=== PATIENT | female | born 1985 | race Caucasian/White ===

== ENCOUNTER 2023-11-26 07:26 | Emergency (ER) | payer OTHER, SELFPAY ==
[2023-11-26 07:29] VITALS: BP 115/82
--- NOTE | 2023-11-26 10:14 | ED.GENMED ---
History of Present Illness
General
Chief Complaint: Cough
Source: patient
Exam Limitations: none
Time Seen by Provider: 11/26/23 07:47
Nursing documentation reviewed up to this point in time: agreed with
Travel History
Have you had any contact with someone who has COVID-19?: No
Do you have any symptoms of coronavirus? Fever > 100 degrees, chills, cough, shortness of breath, sore throat, loss of taste or smell, muscle aches, or headache?: Yes
Symptoms:: cough
History of Present Illness
History of Present Illness:
The patient is a pleasant 37-year-old female who reports she had asthma as a child, and presents with persistent severe cough for 2 weeks. Patient reports that she has been in urgent care multiple times and was started on azithromycin and a
prednisone Dosepak. She reports the cough lingered so she went back to urgent care and was just started on Augmentin and a 50 mg dose of prednisone for 5 days. Patient reports that she took 2 doses of Augmentin and 1 dose of prednisone and she is
still coughing. Patient reports that in addition, she has also been taking allergy medication. Patient reports she has this constant tickle in her throat that keeps causing her to cough. She also reports mild postnasal drip. She denies chest
pain, leg pain, leg swelling, and fever. She denies a history of PE and DVT. Patient reports that she was given promethazine to sleep at night but is unable to sleep due to severe cough. Patient reports that she had a chest x-ray done yesterday
at urgent care that showed no pneumonia but showed signs of 'bronchial thickening.' Patient reports that after taking 2 doses of Augmentin, she is now having diarrhea without abdominal pain.
Past History
Past History
ED Past Medical History: Asthma and Psychiatric
ED Past Surgical History: None
Social History
Tobacco: Non-smoker
Alcohol: Daily
Drug: None
Personal:
Living: with family
Family History
Family History: Other
Review of Systems
Review of Systems
Allergies reviewed?: Yes
All Other Systems: ROS reviewed and negative except as documented in HPI and ROS
Constitutional: Reports no symptoms
EENT: Reports other (Itchy throat, postnasal drip)
Respiratory: Reports cough
Cardiac: Reports no symptoms
ABD/GI: Reports no symptoms
: Reports no symptoms
Musculoskeletal: Reports no symptoms
Neurological: Reports no symptoms
Endocrine: Reports no symptoms
Hematologic/Lymphatic: Reports no symptoms
Psychiatric: Reports no symptoms
Phy Exam
Physical Exam
Physical Exam:
Physical Exam
General: no apparent distress, not acutely ill, very well, nontoxic
Neck: supple. no meningeal signs. normal psoterior pharynx. Frequent dry cough
Heart: s1/s2 regular rate and rhythm, no murmur. equal radial pulses.
Lungs: no acute respiratory distress. clear bilaterally, no crackles or wheezing. No tachypnea
Abdomen: normal bowel sounds. not tender. no CVAT
Neuro: alert and oriented. no focal neurological deficits
Skin: no rash
Psychiatric: well kept. interactive and cooperative
Extremities: no edema. no calf tenderness. negative homans. good distal pulses
Course
Vital Signs
Initial and Last Documented VS:
Initial Vital Signs
Temp Pulse Resp BP Pulse Ox
98.6 F 93 18 115/82 99
11/26/23 07:29 11/26/23 07:29 11/26/23 07:29 11/26/23 07:29 11/26/23 07:29
Last Documented Vital Signs
Temp Pulse Resp BP Pulse Ox
98.6 F 86 18 100/66 99
11/26/23 07:29 11/26/23 08:10 11/26/23 08:10 11/26/23 10:19 11/26/23 10:30
MDM/Problems Addressed
Differential Diagnosis Includes:
Seasonal allergies, viral pneumonia, upper respiratory infection
MDM/Problems Addressed:
Patient presents with 2 weeks of persistent subacute cough
Chronic conditions affecting care: Asthma
Acute Exacerbation and/or Progression of Chronic Illness:
Patient may have exacerbation of asthma
*Pulse Oximetry
Patient hypoxic: no
*EKG
Interpreted by ED Provider?: NA
*Auto Self Service Station Attendant Interpretation
Rate: Auto Self Service Station Attendant- N/A
*Critical Care Note
Total Time (30-74mins, 75-104mins- exclusive of procedures): Not Applicable
Data Reviewed
Source: patient
Patient Management
Social determinants of health affecting care: Living situation and Strong social support
Escalation/DeEscalation of care consider admission/obs:
Patient appears nontoxic and well. She has had no fever, chest pain or shortness of breath. Her pulse ox is normal. I suspect that her symptoms are likely due to seasonal allergies. Patient already finished a course of azithromycin and given she
now has diarrhea from the Augmentin, I suggest that she stop the Augmentin. Patient encouraged to continue taking the prednisone, allergy medication, and recommended to add Cepacol lozenge or's. Patient prescribed codeine cough syrup only to take
at night as needed for severe cough.
ED Attending Note
-
Portions of this chart may have been created with voice recognition software.� Occasional wrong word or��sound alike� substitutions may have occurred due to the inherent limitations of voice recognition software.
Discharge Plan
Departure
Patient Disposition: Home (Routine Discharge)
Date of Disposition: 11/26/23
Time of Disposition: 10:20
Patient with high blood pressure during this ER visit?: No
Condition: Good
Covid-19: Not Applicable
Discharge Problem:
Cough
Instructions: Cough, Adult (DC)
Prescriptions:
New
codeine-guaifenesin 10-100 mg/5 mL liquid
5 ml PO ONCE PRN (Reason: Cough) Qty: 60 0RF
Rx Instructions:
Take at night as needed for cough
No Action
PNV #[id number]
1 tab PO DAILY
acetaminophen 325 mg Tablet
650 mg PO Q4HPRN PRN (Reason: mild pain) Qty: 0 0RF
lorazepam 1 mg Tablet
1 mg PO Q4HPRN PRN (Reason: tremors) Qty: 0 0RF
ibuprofen 600 mg Tablet
600 mg PO Q4HPRN PRN (Reason: cramps) Qty: 0 0RF
ondansetron 4 mg Tablet,Disintegrating
4 mg PO TIDPRN PRN (Reason: nausea/vomiting) Qty: 8 0RF
Referrals:
Smith Arauz MD [Active] - (Call if not feeling better in 2-3 days)
UNKNOWN - PT DOES,NOT KNOW [Family Provider] -
Activity Restrictions/Additional Instructions:
Continue the prednisone as prescribed, as well as the albuterol and allergy medication. Please stop the Augmentin. If the cough lingers, please follow-up with pulmonary. Please buy Cepacol [id number] to help with the itchiness in your
throat.
Interventions
Interventions:
*Risk Screen - Suicide Last Done: 11/26/23 07:29
*General Assessment Last Done: 11/26/23 07:29
*Neglect/Abuse Screening Last Done: 11/26/23 07:29
ED- Fall Risk Assessment Last Done: 11/26/23 10:03
*ED COVID-19 Vaccine History Last Done: 11/26/23 10:03
*Nursing Disposition Last Done: 11/26/23 10:03
ED- Pulmonary Assessment Last Done: 11/26/23 08:10
Discharge Date and Time
Discharge Date/Time: 11/26/23 10:30
Print Language: [place] LEONE[place]
[2023-11-26 10:19] VITALS: BP 100/66
== END 2023-11-26 10:30 | disposition home or self-care (01) ==
LOC: EMR 07:26
PROVIDERS: EMERGENCY PHYSICIAN Emergency Medicine
DX: R05.9 Cough, unspecified (principal); J45.909 Unspecified asthma, uncomplicated; R19.7 Diarrhea, unspecified
CPT/HCPCS: 99283

== ENCOUNTER 2023-12-20 06:09 | Emergency (ER) | payer OTHER, SELFPAY ==
[2023-12-20 06:11] VITALS: BP 99/74
[2023-12-20 06:37] LABS: % Basophils 0.3 % (0-2); % Immature Granulocytes 0.3 % (0-0.5); % Lymphocytes 27.1 % (20.5-51.1); % Monocytes 3.7 % (1.7-9.3); % Neutrophils 64.6 % (42.2-75.2); Absolute Eosinophils 0.2 10^3/uL (0-0.7); Absolute Lymphocytes 1.6 10^3/uL (1.2-3.4); Absolute Monocytes 0.2 10^3/uL (0.1-0.6); Absolute Neutrophils 3.9 10^3/uL (1.4-6.5); Hematocrit 35.4 % (37.0-47.0); Hemoglobin 12.2 g/dL (12.0-16.0); Mean Corp Hgb Conc. 34.5 g/dL (33.0-37.0); Mean Corpuscular Hgb 31.8 pg (27.0-31.0); Mean Corpuscular Volume 92.2 fL (81.0-99.0); Mean Platelet Volume 9.5 fL (7.4-10.4); Nucleated Red Blood Cells % 0 %; Platelet Count 207 10^3/uL (130-400); Red Blood Cell Count 3.84 10^6/uL (4.20-5.40); Red Cell Dist. Width 12.6 % (11.5-14.5)
[2023-12-20 06:52] LABS: HCG, Serum Qualitative Screen Negative
[2023-12-20 07:05] LABS: ALT (SGPT) 16 U/L (0-35); AST (SGOT) 26 U/L (14-36); Albumin 4.3 g/dl (3.5-5.0); Alcohol 41 mg/dl; Alkaline Phosphatase 56 U/L (38-126); Blood Urea Nitrogen 10 mg/dl (7-17); Calcium 8.9 mg/dl (8.4-10.2); Carbon Dioxide 26 mmol/L (22-30); Chloride 103 mmol/L (98-107); Glucose 82 mg/dl (70-99); Potassium 4.3 mmol/L (3.5-5.1); Sodium 138 mmol/L (135-145); Total Bilirubin 0.6 mg/dl (0.2-1.3); Total Protein 6.7 g/dl (6.3-8.2); eGFR > 60.00
--- NOTE | 2023-12-20 10:37 | ED.GENMED ---
History of Present Illness
General
Chief Complaint: Alcohol Problem
Source: patient
Exam Limitations: none
Time Seen by Provider: 12/20/23 10:16
Nursing documentation reviewed up to this point in time: agreed with
Travel History
Have you had any contact with someone who has COVID-19?: No
Do you have any symptoms of coronavirus? Fever > 100 degrees, chills, cough, shortness of breath, sore throat, loss of taste or smell, muscle aches, or headache?: No
History of Present Illness
History of Present Illness:
Patient is a 37-year-old female who presents to the ER for evaluation. Patient reports she has a history of alcohol abuse and was sober for 3 years then relapsed on Tuesday, 3 days ago. She drank Tuesday and Tuesday and tapered yesterday. Her
last check was 5 PM yesterday. She reports however she is very anxious feels her heart racing and cannot sleep. She is currently on no medications. She does attend meetings for AA and has support at home. She denies any suicidal homicidal
thoughts. Her mom drove her to the hospital.
Past History
Past History
ED Past Medical History: Asthma and Psychiatric
ED Past Surgical History: None
Social History
Tobacco: Non-smoker
Alcohol: Daily
Drug: None
Personal:
Living: with family
Family History
Family History: Other
Review of Systems
Review of Systems
Allergies reviewed?: Yes
All Other Systems: ROS reviewed and negative except as documented in HPI and ROS
Constitutional: Reports no symptoms; Denies fever, fatigue or chills
EENT: Reports no symptoms
Respiratory: Reports no symptoms
Cardiac: Reports no symptoms
ABD/GI: Reports no symptoms; Denies abdominal pain, nausea or vomiting
Musculoskeletal: Reports no symptoms
Skin: Reports no symptoms
Psychiatric: Reports anxiety; Denies depression, suicidal or hallucinations
Phy Exam
General Physical Exam
General Presentation: no apparent distress
General age: appears stated age
General Skin: warm and dry
General Habitus: normal
General Mental: alert
Cardiovascular Exam
Cardiovascular Exam: regular rate/rhythm, no murmur and normal peripheral pulses
Pulmonary Exam
Pulmonary Exam: lungs clear and no respiratory distress
Musculoskeletal Exam
Musculoskeletal Exam: full ROM
Skin Exam
Skin Exam: normal color and warm/dry
Psychiatric Exam
Psychiatric Exam: normal mood/affect
Scores
Withdrawal Assessment of Alcohol
Withdrawal Assessment Completed?: Yes
Nausea and Vomiting: No nausea and no vomiting
Tactile Disturbances: None
Tremor: No tremor
Auditory Disturbances: Not present
Paroxysmal Sweats: No sweat visible
Visual Disturbances: Not present
Anxiety: No anxiety, at ease
Headache, Fullness in Head: Not present
Agitation: Normal activity
Orientation and clouding of sensorium: Oriented and can do serial additions
Total CIWA Score: 0
Alcohol Withdrawal Medication Recommendation: Equal to MSAS Score 0-4. Monitor & re-assess q2hrs, NO MEDICATION NEEDED
Course
Orders/Labs/Results
Orders:
Orders
12/20/23 06:15
Test Result ONCE
12/20/23 06:24
Alcohol Urgent
Complete Blood Count/With Diff Urgent
Comprehensive Metabolic Panel Urgent
HCG, Serum Qualitative Screen Urgent
12/20/23 10:34
0.9% Sodium Chloride 1000 ml [Nss] 1,000 ml IV BOLUS
12/20/23 10:35
IV Insert/Care/Rem.- Treatment PRN
12/20/23 10:36
Lorazepam [Ativan] 0.5 mg IV NOW STA
12/20/23 10:37
Vital Signs- Treatment ONCE
Frequency: Once
12/20/23 10:39
Crisis Consult Urgent
Reason for Consult: resources for out pt treatment
Abnormal Lab Results
12/20/23
06:24
RBC 3.84 L 10^6/uL
(4.20-5.40)
Hct 35.4 L %
(37.0-47.0)
MCH 31.8 H pg
(27.0-31.0)
12/20/23 06:24
12/20/23 06:24
Vital Signs
Initial and Last Documented VS:
Initial Vital Signs
Temp Pulse Resp BP Pulse Ox
97.8 F 91 19 99/74 100
12/20/23 06:11 12/20/23 06:11 12/20/23 06:11 12/20/23 06:11 12/20/23 06:11
Last Documented Vital Signs
Temp Pulse Resp BP Pulse Ox
98.5 F 70 18 90/66 100
12/20/23 11:00 12/20/23 13:28 12/20/23 13:28 12/20/23 13:28 12/20/23 13:28
MDM/Problems Addressed
Differential Diagnosis Includes:
Not limited to anxiety, alcohol withdrawal alcohol abuse
MDM/Problems Addressed:
Patient is a 37-year-old female as documented with history of alcohol abuse was sober for 3 years then relapsed over the weekend. Patient had a last drink 5 PM last night but feels anxious and stressed.
She presents awake alert no acute distress she appears calm she is nontachycardic nontachypneic does not appear at all to being withdrawing. She does however request IV fluids and feels dehydrated. This is reasonable. She was given a small dose
of Ativan and fluids. Blood pressure on the lower side but patient reports blood pressure is normally 90s over 60s. discharge blood pressure 90/66. She does have alcohol resources at home such as AA but crisis did see her and gave her
recommendations for therapy. Will give a small dose of Ativan as needed for the next several days discussed close outpatient follow-up family doctor
Chronic conditions affecting care:
chronic alcohol abuse
*Critical Care Note
Total Time (30-74mins, 75-104mins- exclusive of procedures): Not Applicable
ED Attending Note
-
Portions of this chart may have been created with voice recognition software.� Occasional wrong word or��sound alike� substitutions may have occurred due to the inherent limitations of voice recognition software.
Discharge Plan
Departure
Patient Disposition: Home (Routine Discharge)
Date of Disposition: 12/20/23
Time of Disposition: 13:19
Patient with high blood pressure during this ER visit?: No
Condition: Fair
Covid-19: Not Applicable
Discharge Problem:
Alcohol abuse
Instructions: Alcohol Use Disorder (DC)
Prescriptions:
New
lorazepam [Ativan] 0.5 mg tablet
0.5 mg PO TID PRN (Reason: alcohol withdrawal) Qty: 10 0RF
Rx Instructions:
0.5 to 1 mg orally every 8 hrs as needed
No Action
PNV #[id number]
1 tab PO DAILY
acetaminophen 325 mg Tablet
650 mg PO Q4HPRN PRN (Reason: mild pain) Qty: 0 0RF
lorazepam 1 mg Tablet
1 mg PO Q4HPRN PRN (Reason: tremors) Qty: 0 0RF
ibuprofen 600 mg Tablet
600 mg PO Q4HPRN PRN (Reason: cramps) Qty: 0 0RF
ondansetron 4 mg Tablet,Disintegrating
4 mg PO TIDPRN PRN (Reason: nausea/vomiting) Qty: 8 0RF
codeine-guaifenesin 10-100 mg/5 mL liquid
5 ml PO ONCE PRN (Reason: Cough) Qty: 60 0RF
Rx Instructions:
Take at night as needed for cough
Referrals:
NONE,* [Family Provider] -
Activity Restrictions/Additional Instructions:
As discussed a prescription for Ativan was sent to pharmacy take as directed. No driving or drinking alcohol taking this medication. Follow-up with your resource that you were provided for therapy and alcohol abuse resources. Return if any
worsening of symptoms. Stay well-hydrated.
Interventions
Interventions:
*Risk Screen - Suicide Last Done: 12/20/23 06:11
*General Assessment Last Done: 12/20/23 06:11
*Neglect/Abuse Screening Last Done: 12/20/23 06:11
ED- Fall Risk Assessment Last Done: 12/20/23 11:00
*ED COVID-19 Vaccine History Last Done: 12/20/23 06:11
*Nursing Disposition Last Done: 12/20/23 13:37
ED- Neurological Assessment Last Done: 12/20/23 11:00
ED-Psychological Assessment Last Done: 12/20/23 11:00
Discharge Date and Time
Discharge Date/Time: 12/20/23 13:37
Print Language: GERMAN
[2023-12-20 11:00] VITALS: BP 83/54
[2023-12-20] MEDS: ATIVAN 0.5 MG IV (11:05)
[2023-12-20] MEDS: NSS 1000 IV (11:05)
[2023-12-20 13:28] VITALS: BP 90/66
== END 2023-12-20 13:37 | disposition home or self-care (01) ==
LOC: EMR 06:09
PROVIDERS: Emergency Medicine; EMERGENCY PHYSICIAN Emergency Medicine
DX: F10.10 Alcohol abuse, uncomplicated (principal)
CPT/HCPCS: 99284; 96374; 80053; 82077; 84703; 85025

== ENCOUNTER 2024-06-19 12:03 | Emergency (ER) | payer OTHER, SELFPAY ==
[2024-06-19] VITALS (7 sets, daily range): BP systolic 96–146; BP diastolic 67–107; BMI 21.9
--- NOTE | 2024-06-19 12:31 | ED.GENMED ---
ED Provider Triage
<Lianne Coates PA-C - Last Filed: 06/19/24 12:36>
-
Patient seen by provider in Triage?: Seen in Triage
Attestation: A medical screening examination has been initiated by a qualified medical provider. Based on the assessment performed at this time, it has been determined that an emergent medical condition may exist and the patient has been informed
that further medical evaluation and possible additional diagnostic testing may be needed.
HPI: [id number] here for detox evaluation. Recently started drinking alcohol again on . Drinking several beers/day. Last drink 8am this morning. C/o heart racing and anxiety.
GENERAL: Alert , in no apparent distress
EYE: No visual abnormalities.
NECK: Trachea midline
ENT: No visible abnormalities.
LUNGS: No acute respiratory distress
NEUROLOGICAL: Alert and oriented
SKIN: Skin intact. No visible changes.
MUSCULOSKELETAL: Moving extremities normally
PSYCH: Normal and appropriate interaction.
This is a medical evaluation conducted in person to initiate diagnostic evaluation and provide initial therapeutics. Please see further documentation by the treating clinician.
Cardiac labs, magnesium, HCG, and EKG ordered. [facility] contacted.
History of Present Illness
<Lianne Coates PA-C - Last Filed: 06/19/24 12:36>
General
Chief Complaint: Alcohol Problem
Time Seen by Provider: 06/19/24 13:50
<Yovany Dennison PA-C - Last Filed: 06/21/24 20:56>
General
Source: patient
Exam Limitations: none
History of Present Illness
History of Present Illness:
38-year-old otherwise healthy female presents with complaints of anxiety depression and requests help for her alcohol abuse. She has been sober for 4 years. She states she recently stopped breast-feeding her son and since then she has been
depressed and anxious. She tried to self medicate with alcohol. She has been drinking heavily over the past 4 days. Last drink was this morning. She still feels her heart is racing. She has been eating well. She does not feel well. She is
denying suicidal homicidal thoughts. She states she has had Seroquel in the past for her anxiety has not taken COVID. No other complaints at this time
Past History
<Lianne Coates PA-C - Last Filed: 06/19/24 12:36>
Past History
ED Past Medical History: Asthma and Psychiatric
ED Past Surgical History: None
Social History
Tobacco: Non-smoker
Alcohol: Daily
Drug: None
Personal:
Living: with family
Family History
Family History: Other
Phy Exam
<Yovany Dennison PA-C - Last Filed: 06/21/24 20:56>
Physical Exam
Physical Exam:
General: Well-appearing anxious female no acute respiratory distress HEENT: Normocephalic
Atraumatic mucosa dry
Heart: Regular rate and rhythm
Lungs: Clear
Neurologic exam alert oriented no obvious tremor
Psychiatric exam: Anxious but cooperative denying thoughts of harming self or others
Scores
<Yovany Dennison PA-C - Last Filed: 06/21/24 20:56>
Withdrawal Assessment of Alcohol
Withdrawal Assessment Completed?: Yes
Nausea and Vomiting: No nausea and no vomiting
Tactile Disturbances: None
Tremor: No tremor
Auditory Disturbances: Not present
Paroxysmal Sweats: No sweat visible
Visual Disturbances: Not present
Anxiety: Moderately anxious, or guarded, so anxiety is inferred
Headache, Fullness in Head: Not present
Agitation: Normal activity
Orientation and clouding of sensorium: Oriented and can do serial additions
Total CIWA Score: 4
Alcohol Withdrawal Medication Recommendation: Equal to MSAS Score 0-4. Monitor & re-assess q2hrs, NO MEDICATION NEEDED
<THANH Osborne - Last Filed: 06/19/24 20:48>
Withdrawal Assessment of Alcohol
Total CIWA Score: 4
Alcohol Withdrawal Medication Recommendation: Equal to MSAS Score 0-4. Monitor & re-assess q2hrs, NO MEDICATION NEEDED
Course
<Lianne Coates PA-C - Last Filed: 06/19/24 12:36>
Orders/Labs/Results
Orders:
Orders
06/19/24 12:34
Electrocardiogram (*1) Urgent
Reason for Study: Palpitations
EKG- Treatment ONCE
Test Result ONCE
06/19/24 12:43
Beta HCG Quantitative Urgent
Comment: ADD ON
Complete Blood Count/With Diff Urgent
Comprehensive Metabolic Panel Urgent
HCG, Serum Qualitative Screen Urgent
Magnesium Urgent
Troponin I Urgent
06/19/24 13:17
Lorazepam [Ativan] 2 mg PO NOW STA
06/19/24 13:24
Lorazepam [Ativan] 2 mg .ROUTE .STK-MED ONE
06/19/24 13:26
Lorazepam [Ativan] 2 mg PO NOW STA
06/19/24 13:36
Add On- LAB Urgent
Tests Added?: quantitative HCG
06/19/24 14:02
0.9% Sodium Chloride 1000 ml [Nss] 1,000 ml IV BOLUS
Lorazepam [Ativan] 1 mg IV NOW STA
06/19/24 15:46
Lorazepam [Ativan] 1 mg IV NOW STA
06/19/24 19:07
0.9% Sodium Chloride 1000 ml [Nss] 1,000 ml IV BOLUS
Abnormal Lab Results
06/19/24
12:43
MCH 32.0 H pg
(27.0-31.0)
Absolute Neuts (auto) 7.2 H 10^3/uL
(1.4-6.5)
Carbon Dioxide 20 L mmol/L
(22-30)
Glucose 100 H mg/dl
(70-99)
Magnesium 2.4 H mg/dl
(1.6-2.3)
Albumin 5.1 H g/dl
(3.5-5.0)
06/19/24 12:43
06/19/24 12:43
Vital Signs
Initial and Last Documented VS:
Initial Vital Signs
Temp Pulse Resp BP Pulse Ox
98.2 F 116 16 146/107 98
06/19/24 12:31 06/19/24 12:31 06/19/24 12:31 06/19/24 12:31 06/19/24 12:31
Last Documented Vital Signs
Temp Pulse Resp BP Pulse Ox
99.6 F 105 17 107/67 99
06/19/24 19:00 06/19/24 20:00 06/19/24 20:00 06/19/24 20:00 06/19/24 20:00
<Yovany Dennison PA-C - Last Filed: 06/21/24 20:56>
Orders/Labs/Results
Orders:
Orders
06/19/24 12:34
Electrocardiogram (*1) Urgent
Reason for Study: Palpitations
EKG- Treatment ONCE
Test Result ONCE
06/19/24 12:43
Beta HCG Quantitative Urgent
Comment: ADD ON
Complete Blood Count/With Diff Urgent
Comprehensive Metabolic Panel Urgent
HCG, Serum Qualitative Screen Urgent
Magnesium Urgent
Troponin I Urgent
06/19/24 13:17
Lorazepam [Ativan] 2 mg PO NOW STA
06/19/24 13:24
Lorazepam [Ativan] 2 mg .ROUTE .STK-MED ONE
06/19/24 13:26
Lorazepam [Ativan] 2 mg PO NOW STA
06/19/24 13:36
Add On- LAB Urgent
Tests Added?: quantitative HCG
06/19/24 14:02
0.9% Sodium Chloride 1000 ml [Nss] 1,000 ml IV BOLUS
Lorazepam [Ativan] 1 mg IV NOW STA
06/19/24 15:46
Lorazepam [Ativan] 1 mg IV NOW STA
06/19/24 19:07
0.9% Sodium Chloride 1000 ml [Nss] 1,000 ml IV BOLUS
Abnormal Lab Results
06/19/24
12:43
MCH 32.0 H pg
(27.0-31.0)
Absolute Neuts (auto) 7.2 H 10^3/uL
(1.4-6.5)
Carbon Dioxide 20 L mmol/L
(22-30)
Glucose 100 H mg/dl
(70-99)
Magnesium 2.4 H mg/dl
(1.6-2.3)
Albumin 5.1 H g/dl
(3.5-5.0)
06/19/24 12:43
06/19/24 12:43
Vital Signs
Initial and Last Documented VS:
Initial Vital Signs
Temp Pulse Resp BP Pulse Ox
98.2 F 116 16 146/107 98
06/19/24 12:31 06/19/24 12:31 06/19/24 12:31 06/19/24 12:31 06/19/24 12:31
Last Documented Vital Signs
Temp Pulse Resp BP Pulse Ox
99.6 F 105 17 107/67 99
06/19/24 19:00 06/19/24 20:00 06/19/24 20:00 06/19/24 20:00 06/19/24 20:00
<THANH Osborne - Last Filed: 06/19/24 20:48>
Orders/Labs/Results
Orders:
Orders
06/19/24 12:34
Electrocardiogram (*1) Urgent
Reason for Study: Palpitations
EKG- Treatment ONCE
Test Result ONCE
06/19/24 12:43
Beta HCG Quantitative Urgent
Comment: ADD ON
Complete Blood Count/With Diff Urgent
Comprehensive Metabolic Panel Urgent
HCG, Serum Qualitative Screen Urgent
Magnesium Urgent
Troponin I Urgent
06/19/24 13:17
Lorazepam [Ativan] 2 mg PO NOW STA
06/19/24 13:24
Lorazepam [Ativan] 2 mg .ROUTE .STK-MED ONE
06/19/24 13:26
Lorazepam [Ativan] 2 mg PO NOW STA
06/19/24 13:36
Add On- LAB Urgent
Tests Added?: quantitative HCG
06/19/24 14:02
0.9% Sodium Chloride 1000 ml [Nss] 1,000 ml IV BOLUS
Lorazepam [Ativan] 1 mg IV NOW STA
06/19/24 15:46
Lorazepam [Ativan] 1 mg IV NOW STA
06/19/24 19:07
0.9% Sodium Chloride 1000 ml [Nss] 1,000 ml IV BOLUS
Abnormal Lab Results
06/19/24
12:43
MCH 32.0 H pg
(27.0-31.0)
Absolute Neuts (auto) 7.2 H 10^3/uL
(1.4-6.5)
Carbon Dioxide 20 L mmol/L
(22-30)
Glucose 100 H mg/dl
(70-99)
Magnesium 2.4 H mg/dl
(1.6-2.3)
Albumin 5.1 H g/dl
(3.5-5.0)
06/19/24 12:43
06/19/24 12:43
Vital Signs
Initial and Last Documented VS:
Initial Vital Signs
Temp Pulse Resp BP Pulse Ox
98.2 F 116 16 146/107 98
06/19/24 12:31 06/19/24 12:31 06/19/24 12:31 06/19/24 12:31 06/19/24 12:31
Last Documented Vital Signs
Temp Pulse Resp BP Pulse Ox
99.6 F 105 17 107/67 99
06/19/24 19:00 06/19/24 20:00 06/19/24 20:00 06/19/24 20:00 06/19/24 20:00
<Yovany Dennison PA-C - Last Filed: 06/21/24 20:56>
MDM/Problems Addressed
Differential Diagnosis Includes:
Patient here with anxiety, depression symptoms without imminent danger of harming self or others. She has been self-medicating with an alcohol binge over the past 4 days. Vital signs are stable she does appear anxious. Labs reviewed through
triage and are negative. [facility] evaluated the patient and patient is not interested in inpatient treatment but will seek outpatient help. In the interim we will hydrate with fluids here and give Ativan for her symptoms.
<THANH Osborne - Last Filed: 06/19/24 20:48>
MDM/Problems Addressed
Differential Diagnosis Includes:
Patient here with anxiety, depression symptoms without imminent danger of harming self or others. She has been self-medicating with an alcohol binge over the past 4 days. Vital signs are stable she does appear anxious. Labs reviewed through
triage and are negative. [facility] evaluated the patient and patient is not interested in inpatient treatment but will seek outpatient help. In the interim we will hydrate with fluids here and give Ativan for her symptoms.
Patient signed out to me. Patient presented for alcohol detox however blood work reveals that patient's hCG is positive. Provider prior to me did speak with [facility] and decision was made to treat with Ativan for possible mild withdrawal .
On my exam patient is resting in no acute distress appears very minimally anxious heart rate minimally tachycardic however no acute distress.
Patient tells me that similar symptoms of anxiety occurred when she was
Patient has been monitored here received fluids and feeling much better. She is mildly tachycardic, however well-appearing in no acute distress she is calm. She has been drinking fluids on her own no vomiting no nausea no hallucinations.
Will DC will several tablets of Ativan for possible withdrawal however patient is very well-appearing and not she is to follow-up with [facility] positive .
I did review opiate database patient has been prescribed benzos several times in the past however last was December 2023 when she was seen here in the ER for alcohol abuse to prevent alcohol withdrawal. She does report she has a history of anxiety and
has used medication in the past prescriber her family doctor.
<Yovany Dennison PA-C - Last Filed: 06/21/24 20:56>
*Critical Care Note
Total Time (30-74mins, 75-104mins- exclusive of procedures): Not Applicable
ED Attending Note
<Lianne Coates PA-C - Last Filed: 06/19/24 12:36>
-
Portions of this chart may have been created with voice recognition software.� Occasional wrong word or��sound alike� substitutions may have occurred due to the inherent limitations of voice recognition software.
Discharge Plan
Departure
Patient Disposition: Home (Routine Discharge)
Date of Disposition: 06/19/24
Time of Disposition: 20:39
Patient with high blood pressure during this ER visit?: Yes
Condition: Fair
Covid-19: Not Applicable
Discharge Problem:
Alcohol use
Instructions: Alcohol Use Disorder (DC)
Prescriptions:
New
lorazepam [Ativan] 0.5 mg tablet
0.5 mg PO TID PRN (Reason: alcohol withdrawal) Qty: 5 0RF
No Action
PNV #[id number]
1 tab PO DAILY
acetaminophen 325 mg Tablet
650 mg PO Q4HPRN PRN (Reason: mild pain) Qty: 0 0RF
lorazepam 1 mg Tablet
1 mg PO Q4HPRN PRN (Reason: tremors) Qty: 0 0RF
ibuprofen 600 mg Tablet
600 mg PO Q4HPRN PRN (Reason: cramps) Qty: 0 0RF
ondansetron 4 mg Tablet,Disintegrating
4 mg PO TIDPRN PRN (Reason: nausea/vomiting) Qty: 8 0RF
codeine-guaifenesin 10-100 mg/5 mL liquid
5 ml PO ONCE PRN (Reason: Cough) Qty: 60 0RF
Rx Instructions:
Take at night as needed for cough
lorazepam [Ativan] 0.5 mg tablet
0.5 mg PO TID PRN (Reason: alcohol withdrawal) Qty: 10 0RF
Rx Instructions:
0.5 to 1 mg orally every 8 hrs as needed
Referrals:
Layton Hinkle MD [Active] -
NONE,* [Family Provider] -
Activity Restrictions/Additional Instructions:
As discussed several tablets of low-dose Ativan was sent to your pharmacy take only as directed.
Do not drink alcohol while taking this medication
Follow-up with your [facility] as scheduled please call tomorrow to make an appointment as you are incidentally found to be here in the ER.
Please also follow-up with outpatient resources for alcohol abuse that you were provided
Return with any worsening symptoms
Interventions
Interventions:
*Risk Screen - Suicide Last Done: 06/19/24 12:31
*General Assessment Last Done: 06/19/24 14:38
*Neglect/Abuse Screening Last Done: 06/19/24 12:31
ED- Fall Risk Assessment Last Done: 06/19/24 14:38
*ED COVID-19 Vaccine History Last Done: 06/19/24 14:38
*Nursing Disposition Last Done: 06/19/24 20:50
ED- Neurological Assessment Last Done: 06/19/24 19:30
ED-Psychological Assessment Last Done: 06/19/24 14:38
Discharge Date and Time
Discharge Date/Time: 06/19/24 21:01
Print Language: IRAQI
[2024-06-19 13:04] LABS: % Basophils 0.3 % (0-2); % Eosinophils 0.1 % (0-6); % Immature Granulocytes 0.3 % (0-0.5); % Lymphocytes 23.9 % (20.5-51.1); % Monocytes 1.8 % (1.7-9.3); % Neutrophils 73.6 % (42.2-75.2); Absolute Lymphocytes 2.3 10^3/uL (1.2-3.4); Absolute Monocytes 0.2 10^3/uL (0.1-0.6); Absolute Neutrophils 7.2 10^3/uL (1.4-6.5); Hematocrit 41.3 % (37.0-47.0); Hemoglobin 14.7 g/dL (12.0-16.0); Mean Corp Hgb Conc. 35.6 g/dL (33.0-37.0); Mean Platelet Volume 9.1 fL (7.4-10.4); Nucleated Red Blood Cells % 0 %; Platelet Count 288 10^3/uL (130-400); Red Blood Cell Count 4.59 10^6/uL (4.20-5.40); Red Cell Dist. Width 12.4 % (11.5-14.5); White Blood Cell Count 9.8 10^3/uL (4.8-10.8)
[2024-06-19 13:27] LABS: ALT (SGPT) 18 U/L (0-35); AST (SGOT) 28 U/L (14-36); Albumin 5.1 g/dl (3.5-5.0); Alkaline Phosphatase 65 U/L (38-126); Blood Urea Nitrogen 8 mg/dl (7-17); Calcium 9.1 mg/dl (8.4-10.2); Carbon Dioxide 20 mmol/L (22-30); Chloride 101 mmol/L (98-107); Glucose 100 mg/dl (70-99); Magnesium 2.4 mg/dl (1.6-2.3); Potassium 4.5 mmol/L (3.5-5.1); Sodium 139 mmol/L (135-145); Total Bilirubin 0.6 mg/dl (0.2-1.3); Total Protein 7.7 g/dl (6.3-8.2); eGFR > 60.00
[2024-06-19] MEDS: ATIVAN 2 MG PO (13:28)
[2024-06-19 13:34] LABS: HCG, Serum Qualitative Screen Positive
[2024-06-19 13:37] LABS: Troponin I < 0.012 ng/ml
[2024-06-19] MEDS: NSS 1000 IV ×2 (15:00→19:13)
[2024-06-19] MEDS: ATIVAN 1 MG IV (16:21)
== END 2024-06-19 21:01 | disposition home or self-care (01) ==
LOC: EMR 12:03
PROVIDERS: Physician Assistant; EMERGENCY PHYSICIAN Emergency Medicine
DX: F10.10 Alcohol abuse, uncomplicated (principal); R00.0 Tachycardia, unspecified; F41.8 Other specified anxiety disorders; J45.909 Unspecified asthma, uncomplicated
CPT/HCPCS: 99283; 96374; 96376; 96361; 80053; 83735; 84484; 84702; 84703; 85025; 93005